=== PATIENT | male | born 1935 | race Caucasian/White ===

== ENCOUNTER 2021-07-01 02:05 | Emergency (ER) | payer MEDICARE ==
[~2021-07-01] VITALS: Ht 175.3 cm; Wt 75.0 kg
[~2021-07-01 02:05] MED LIST: CYCL-1 PO; DICL100G15 TOP
--- NOTE | 2021-07-01 07:47 | NUR ---
RE-EVAL PT AND PT REPORTS HE HAD EPISODE OF DIZZINESS LAST NIGHT AND THAT IS REASON HE TOOK HIS BP. PT UNABLE TO CLARIFY WHEN SXS STARTED OR STOPPED, ACS PROTOCOL PLACED.
[2021-07-01 08:28] LABS: BASOPHILS # (AUTO) 0.1 X10'3 (0-0.2); BASOPHILS % (AUTO) 0.8 % (0-1); EOSINOPHILS # (AUTO) 0.1 X10'3 (0-0.9); HEMATOCRIT 38.3 % (42.0-52.0); HEMOGLOBIN 12.9 g/dl (14.0-17.9); LYMPHOCYTES # (AUTO) 1.8 X10'3 (1.1-4.8); LYMPHOCYTES % (AUTO) 25.6 % (21-51); MEAN CORPUSCULAR HGB CONC 33.5 g/dL (33.0-36.5); MEAN CORPUSCULAR VOLUME 92.4 FL (78-98); MEAN PLATELET VOLUME 9.1 FL (7.4-10.4); MONOCYTES # (AUTO) 0.7 X10'3 (0-0.9); MONOCYTES % (AUTO) 10.4 % (2-12); NEUTROPHILS # (AUTO) 4.4 X10'3 (1.8-7.7); NEUTROPHILS % (AUTO) 61.2 % (42-75); PLATELET COUNT 192 X10'3 (140-440); RED BLOOD COUNT 4.15 X10'6 (4.70-6.10); RED CELL DISTRIBUTION WIDTH 13.6 % (11.5-14.5); WHITE BLOOD COUNT 7.2 X10'3 (4.5-11.0)
--- NOTE | 2021-07-01 08:30 | NUR ---
Pt has no complaints or symptoms at this time.
[2021-07-01 08:51] LABS: ALANINE AMINOTRANSFERASE 29 U/L (12-78); ALBUMIN 3.6 G/DL (3.4-5.0); ALKALINE PHOSPHATASE 90 IU/L (46-116); ASPARTATE AMINO TRANSFERASE 28 U/L (10-37); BILIRUBIN,TOTAL 0.8 MG/DL (0.1-1.0); BLOOD UREA NITROGEN 26 MG/DL (7-18); BUN/CREATININE RATIO 24.5 (5.4-32.0); CALCIUM 9.1 MG/DL (8.5-10.1); CREATININE 1.06 MG/DL (0.60-1.10); GLUCOSE 94 MG/DL (70-104); TOTAL CARBON DIOXIDE 29.6 MMOL/L (24-32); TOTAL PROTEIN 7.2 G/DL (6.4-8.2); eGFR 66 ML/MIN
[2021-07-01 09:17] VITALS: BP 160/73
--- NOTE | 2021-07-01 09:17 | NUR ---
canceled IV. will d/c pt after labs are back.
[2021-07-01 09:22] LABS: ANION GAP 7 (8-16); CHLORIDE 103 MMOL/L (99-107); POTASSIUM 4.4 MMOL/L (3.5-5.1); SODIUM 140 MMOL/L (135-145)
== END 2021-07-01 10:18 | disposition home or self-care (01) ==
LOC: ER 02:06
DX: R00.1 Bradycardia, unspecified (principal); I10 Essential (primary) hypertension; R07.89 Other chest pain; E78.00 Pure hypercholesterolemia, unspecified; F41.9 Anxiety disorder, unspecified; Z87.442 Personal history of urinary calculi; Z72.89 Other problems related to lifestyle; Z98.890 Other specified postprocedural states; Z88.0 Allergy status to penicillin; Z88.8 Allergy status to other drugs, medicaments and biological substances; Z79.899 Other long term (current) drug therapy
CPT/HCPCS: 36415; 71045; 80053; 83880; 84484; 85025; 93005; 99285

== ENCOUNTER 2021-09-04 15:20 | Emergency (ER) | payer MEDICARE ==
[~2021-09-04] VITALS: Ht 175.3 cm; Wt 73.2 kg
[2021-09-04] MEDS ORDERED: BEBTELOVIMAB 175 MG/2 ML VIAL IV ONE (20:30)
[2021-09-04 22:28] VITALS: BP 138/51
== END 2021-09-04 22:29 | disposition home or self-care (01) ==
LOC: ER 15:21
DX: U07.1 COVID-19 (principal); R09.89 Other specified symptoms and signs involving the circulatory and respiratory systems; R53.1 Weakness; R05.9 Cough, unspecified; R50.9 Fever, unspecified; E78.00 Pure hypercholesterolemia, unspecified; I10 Essential (primary) hypertension; F41.9 Anxiety disorder, unspecified; F19.90 Other psychoactive substance use, unspecified, uncomplicated; Z87.442 Personal history of urinary calculi; Z72.89 Other problems related to lifestyle; Z88.0 Allergy status to penicillin; Z88.8 Allergy status to other drugs, medicaments and biological substances; Z79.899 Other long term (current) drug therapy
CPT/HCPCS: 87502; 87503; 87635; 99283; C9803; M0222; Q0222

== ENCOUNTER 2024-06-06 10:06 | Emergency (ER) | payer MEDICARE ==
[~2024-06-06] VITALS: Ht 175.3 cm; Wt 77.4 kg
[2024-06-06 12:17] LABS: BASOPHILS % (AUTO) 0.6 % (0-1); EOSINOPHILS # (AUTO) 0.2 X10'3 (0-0.9); EOSINOPHILS % (AUTO) 2.2 % (0-6); HEMOGLOBIN 11.8 g/dl (14.0-17.9); LYMPHOCYTES # (AUTO) 1.7 X10'3 (1.1-4.8); LYMPHOCYTES % (AUTO) 22.5 % (21-51); MEAN CORPUSCULAR HEMOGLOBIN 31.2 PG (27.0-31.0); MEAN CORPUSCULAR HGB CONC 33.7 g/dL (33.0-36.5); MEAN CORPUSCULAR VOLUME 92.7 FL (78-98); MEAN PLATELET VOLUME 8.3 FL (7.4-10.4); MONOCYTES # (AUTO) 0.8 X10'3 (0-0.9); MONOCYTES % (AUTO) 10.6 % (2-12); NEUTROPHILS # (AUTO) 4.7 X10'3 (1.8-7.7); NEUTROPHILS % (AUTO) 64.1 % (42-75); PLATELET COUNT 193 X10'3 (140-440); RED BLOOD COUNT 3.77 X10'6 (4.70-6.10); RED CELL DISTRIBUTION WIDTH 14.8 % (11.5-14.5); WHITE BLOOD COUNT 7.3 X10'3 (4.5-11.0)
[2024-06-06 12:35] LABS: ALANINE AMINOTRANSFERASE 25 U/L (12-78); ALBUMIN 3.3 G/DL (3.4-5.0); ALBUMIN/GLOBULIN RATIO 0.9 (1.1-1.5); ALKALINE PHOSPHATASE 99 IU/L (46-116); ANION GAP 4 (8-16); ASPARTATE AMINO TRANSFERASE 23 U/L (10-37); BILIRUBIN,TOTAL 0.7 MG/DL (0.1-1.0); BLOOD UREA NITROGEN 27 MG/DL (7-18); BUN/CREATININE RATIO 29.3 (10.0-20.0); CALCIUM 8.7 MG/DL (8.5-10.1); CHLORIDE 106 MMOL/L (99-107); CREATININE 0.92 MG/DL (0.60-1.10); GLUCOSE 89 MG/DL (70-104); POTASSIUM 4.3 MMOL/L (3.5-5.1); SODIUM 141 MMOL/L (135-145); TOTAL CARBON DIOXIDE 30.8 MMOL/L (24-32); TOTAL PROTEIN 6.9 G/DL (6.4-8.2); eCRCL 54 ML/MIN; eGFR 77 ML/MIN
[2024-06-06 15:00] VITALS: BP 140/112; PULSE 53; RESP 16; O2SAT 97
== END 2024-06-06 15:07 | disposition home or self-care (01) ==
LOC: ER 10:06
DX: I10 Essential (primary) hypertension (principal); R00.1 Bradycardia, unspecified; E78.00 Pure hypercholesterolemia, unspecified; Z88.0 Allergy status to penicillin; Z79.1 Long term (current) use of non-steroidal anti-inflammatories (NSAID)
CPT/HCPCS: 36415; 71045; 80053; 84484; 85025; 99284

== ENCOUNTER 2024-08-08 16:30 | Emergency (ER) | payer MEDICARE ==
[~2024-08-08] VITALS: Ht 175.3 cm; Wt 71.9 kg
[2024-08-08 16:40] VITALS: TEMP 98
[2024-08-08] MEDS: ringers solution, lacted 1,000 ML IV ONE (17:54)
[2024-08-08 18:08] LABS: BASOPHILS # (AUTO) 0.1 X10'3 (0-0.2); BASOPHILS % (AUTO) 0.5 % (0-1); EOSINOPHILS % (AUTO) 0.3 % (0-6); HEMATOCRIT 34.5 % (42.0-52.0); HEMOGLOBIN 11.5 g/dl (14.0-17.9); LYMPHOCYTES # (AUTO) 1.3 X10'3 (1.1-4.8); LYMPHOCYTES % (AUTO) 10.3 % (21-51); MEAN CORPUSCULAR HEMOGLOBIN 30.2 PG (27.0-31.0); MEAN CORPUSCULAR HGB CONC 33.3 g/dL (33.0-36.5); MEAN CORPUSCULAR VOLUME 90.8 FL (78-98); MEAN PLATELET VOLUME 8.4 FL (7.4-10.4); MONOCYTES # (AUTO) 0.8 X10'3 (0-0.9); MONOCYTES % (AUTO) 6.6 % (2-12); NEUTROPHILS # (AUTO) 10.2 X10'3 (1.8-7.7); NEUTROPHILS % (AUTO) 82.3 % (42-75); PLATELET COUNT 259 X10'3 (140-440); RED CELL DISTRIBUTION WIDTH 14.6 % (11.5-14.5); WHITE BLOOD COUNT 12.4 X10'3 (4.5-11.0)
[2024-08-08 18:26] LABS: ALANINE AMINOTRANSFERASE 14 U/L (12-78); ALBUMIN 3.5 G/DL (3.4-5.0); ALKALINE PHOSPHATASE 87 IU/L (46-116); ANION GAP 4 (8-16); ASPARTATE AMINO TRANSFERASE 20 U/L (10-37); BILIRUBIN,TOTAL 0.7 MG/DL (0.1-1.0); BLOOD UREA NITROGEN 26 MG/DL (7-18); BUN/CREATININE RATIO 21.5 (10.0-20.0); CALCIUM 8.9 MG/DL (8.5-10.1); CHLORIDE 105 MMOL/L (99-107); CREATININE 1.21 MG/DL (0.60-1.10); GLUCOSE 95 MG/DL (70-104); POTASSIUM 4.3 MMOL/L (3.5-5.1); SODIUM 138 MMOL/L (135-145); TOTAL CARBON DIOXIDE 29.5 MMOL/L (24-32); TOTAL PROTEIN 6.9 G/DL (6.4-8.2); eCRCL 41 ML/MIN; eGFR 56 ML/MIN
[2024-08-08] MEDS ORDERED: DOCU-170 PO (19:25)
--- NOTE | 2024-08-08 19:27 | Physician Documentation ---
History of Present Illness ~ Chief Complaint: Constipation Stated Complaint: CONSTIPATION Time Seen by MD: 18:31 OK to notify your PCP?: Yes Primary Medical Doctor: DR. MORENO ([facility], [place] and [place] Mode of Arrival: POV Exam Limitations: no limitations HPI Chief Complaint: Constipation Caveat: None Independent Historians: History of Present Illness: Patient is a 89-year-old man who comes in complaining he has not had a bowel movement in three days. Patient has not had any nausea vomiting or fever. Patient does complain of some suprapubic cramps. Patient states that he had the urge to go this morning but nothing came out in the he noticed a little bit of blood in that his stool was extremely hard. Patient has occasional problems with constipation but nothing this severe. Patient has not been on any laxatives. Review of systems: All systems were reviewed and are negative except for what is indicated in the history of present illness. Past Medical History: Hypertension Past Surgical History: Noncontributory Social History: , no tobacco use, no alcohol use Medications: Reviewed as documented Nursing Notes Allergies: Reviewed as documented in Nursing Notes Medication Reconciliation Allergies: Coded Allergies: Penicillins (Verified Allergy, Unknown, 08/08/24) >5 years, unknown reaction, unknown treatment PEN-FAST 3 procaine (Verified Allergy, Unknown, 08/08/24) Scheduled Docusate Sodium (Dulcolax Stool Softener), 1 CAP PO Q12H Discontinued Medications Cyclobenzaprine* (Cyclobenzaprine*), 1 TABLET PO Q8H PRN for muscle spasms Discontinued Reason: completed med therapy Diclofenac Sodium (Voltaren), 1 GM TOP Q6H Discontinued Reason: completed med therapy Past Medical History Past Medical History: High Cholesterol, Hypertension, Kidney Stones, Anxiety Past Surgical History: other Alcohol Use: Occasionally Drug Use: none Lives with: Family Lives In: Home Review of Systems All Other Systems at this time: Reviewed and Negative ROS PATIENT DENIES ANY OTHER ACUTE SYMPTOMS OTHER THAN ABOVE. ALL OTHER SYSTEMS ARE NEGATIVE Physical Exam Vital Signs: RN Vital Signs have been reviewed: Yes, Temperature: 98.0, Source: Temporal, Heart Rate: 63, Respiratory Rate: 13, BP: 143/95, Pulse Oximetry: 99, Weight: 71.900 Oxygen Flow Rate: 0 Pulse Oximetry Reflects: adequate oxygenation Physical Exam General Appearance: No distress Neck: supple, normal ROM, trachea midline Pulmonary: No respiratory distress, CTA, BS equal Cardiac: RRR, no murmur, rub or gallop, GI: nondistended, soft, nontender, normal bowel sounds, no guarding, no rebound Rectal: Large amount of firm stool in the rectum. Stool was broken up and manually removed. Stools dark brown. No melena. No blood visualized. Skin: intact, dry, warm, no rashes Neuro: AAOx3, speech is clear, no focal motor weakness Psych: normal affect, good eye contact, no apparent hallucination, normal speech Progress Results/Orders Results/Orders Completed Orders - AGGIE MINOR MD Lidocaine 2% Jelly 11ml Syr (Glydo-Lidoc (08/08/24 19:20) Medications Received in ER Medications (Trade) Dose Ordered Sig/Quynh Route PRN Reason Start Time Stop Time Status Last Admin Dose Admin Lactated Ringer's 1,000 ml @ 1,000 mls/hr ONCE ONCE IV 08/08/24 17:20 08/08/24 18:19 DC 08/08/24 17:54 1,000 MLS/HR Vital Signs 08/08/24 08/08/24 08/08/24 08/08/24 16:40 17:40 18:30 19:30 Temp 98.0 Pulse 73 63 63 Resp 16 13 17 B/P (MAP) 149/68 143/95 (111) 142/56 (84) Pulse Ox 97 99 99 O2 Flow Rate 0 Laboratory Tests Test 08/08/24 17:35 White Blood Count 12.4 H Red Blood Count 3.80 L Hemoglobin 11.5 L Hematocrit 34.5 L Mean Corpuscular Volume 90.8 Mean Corpuscular Hemoglobin 30.2 Mean Corpuscular Hemoglobin Concent 33.3 Red Cell Distribution Width 14.6 H Platelet Count 259 Mean Platelet Volume 8.4 Neutrophils (%) (Auto) 82.3 H Lymphocytes (%) (Auto) 10.3 L Monocytes (%) (Auto) 6.6 Eosinophils (%) (Auto) 0.3 Basophils (%) (Auto) 0.5 Neutrophils # (Auto) 10.2 H Lymphocytes # (Auto) 1.3 Monocytes # (Auto) 0.8 Eosinophils # (Auto) 0.0 Basophils # (Auto) 0.1 CBC Comment Sodium Level 138 Potassium Level 4.3 Chloride Level 105 Carbon Dioxide Level 29.5 Anion Gap 4 L Blood Urea Nitrogen 26 H Creatinine 1.21 H Estimated GFR/1.73 m2 56 BUN/Creatinine Ratio 21.5 H Glucose Level 95 Calcium Level 8.9 Total Bilirubin 0.7 Aspartate Amino Transf (AST/SGOT) 20 Alanine Aminotransferase (ALT/SGPT) 14 Alkaline Phosphatase 87 Total Protein 6.9 Albumin 3.5 Globulin 3.4 Albumin/Globulin Ratio 1.0 L Chemistry Comments Medical Decision Making Findings Differential diagnosis includes but isn't limited to: Fecal impaction, constipation, intra-abdominal infection Emergency department course/medical decision-making: Patient's presentation is consistent with fecal impaction. Patient is manually disimpacted. It isn't clear why blood work was ordered. Patient's abdominal exam is unremarkable. However does have a mildly elevated white blood cell count of 12.4 and some mild chronic kidney disease. Patient is afebrile and hemodynamically stable. Patient is feeling better. There is no indication for further workup or imaging. Patient is stable for discharge. Departure Time of Disposition: 19:24 Disposition: HOME / SELF CARE / HOMELESS Impression: Primary Impression: Fecal impaction Additional Impression: Constipation Qualified Codes: K59.00 - Constipation, unspecified Condition: Improved Discharge Instructions: Fecal Impaction, Constipation, Adult Additional Instructions: USE DULCOLAX PRESCRIBED TO HELP SOFTEN YOUR STOOL. RECOMMEND ALSO DRINKING PRUNE JUICE. FOLLOW UP WITH YOUR PRIMARY CARE DOCTOR. RECOMMEND USING A FLEET'S ENEMA TONIGHT AND TOMORROW WHICH YOU CAN DATA TECHNICAL LEAD AT ANY PHARMACY. Prescriptions Docusate Sodium (Dulcolax Stool Softener) 100 Mg Capsule 1 CAP PO Q12H for 30 Days, #60 CAP 0 Refills Prov: AGGIE MINOR MD 08/08/24 Education Educated: Patient Educated regarding: diagnosis, treatment, need for follow up Signature Scribe Signature: No scribe Attestation: No scribe AGGIE MINOR MD August 08, 2024 19:27
[2024-08-08 19:30] VITALS: BP 142/56; PULSE 63; RESP 17; O2SAT 99
[2024-08-08] MEDS: LidoCAINE 2% Topical Jelly 11mL syringe (UROJET) TOP ONE (19:34)
== END 2024-08-08 19:53 | disposition home or self-care (01) ==
LOC: ER 16:31
DX: K56.41 Fecal impaction (principal); I10 Essential (primary) hypertension; E78.00 Pure hypercholesterolemia, unspecified; Z88.0 Allergy status to penicillin
CPT/HCPCS: 36415; 80053; 85025; 96360; 99284; J7120; 99283

== ENCOUNTER 2025-01-02 09:18 | Emergency (ER) | payer MEDICARE ==
[~2025-01-02] VITALS: Ht 175.3 cm; Wt 71.6 kg
[~2025-01-02 09:18] MED LIST changes: +ASPI-1071 PO; +ATOR40TA72 PO; -CYCL-1 PO; -DICL100G15 TOP; +DOCU-149 PO; +LOSA50TA64 PO; +hyDRALAzine tablet PO
[2025-01-02 09:25] VITALS: TEMP 97
[2025-01-02 10:17] LABS: MEAN PLATELET VOLUME 8.6 FL (7.4-10.4)
[2025-01-02 10:19] LABS: RED CELL DISTRIBUTION WIDTH 15.1 % (11.5-14.5)
[2025-01-02 10:31] LABS: CREATININE 1.03 MG/DL (0.60-1.10); TOTAL CARBON DIOXIDE 32.0 MMOL/L (24-32); eCRCL 49 ML/MIN; eGFR 68 ML/MIN
--- NOTE | 2025-01-02 11:32 | Physician Documentation ---
History of Present Illness ~ Chief Complaint: Dizziness Stated Complaint: HIGH BLOOD PRESSURE Time Seen by MD: 09:58 Primary Medical Doctor: Mode of Arrival: POV HPI 89 year old male reports that his blood pressure read in the 170's systolic today which is unusual for him. He mentions that he is unsure if his hypertension medications were changed recently because his pills went from a green color to a white color. He normally takes losartan. He denies fever, chest pain, shortness of breath, headache. He does report some intermittent dizziness but no difficulty walking or other neurologic deficits. Medication Reconciliation Allergies: Coded Allergies: Penicillins (Verified Allergy, Unknown, 01/02/25) >5 years, unknown reaction, unknown treatment PEN-FAST 3 procaine (Verified Allergy, Unknown, 01/02/25) Scheduled Aspirin (Ecotrin*), 1 TAB PO DAILY Atorvastatin Calcium (Atorvastatin Calcium), 1 TAB PO HS Docusate Sodium (Colace), 1 CAP PO Q12H, (Reported) Losartan Potassium (Losartan Potassium), 1 TAB PO DAILY [hyDRALAzine tablet], 10 MG PO Q8H Past Medical History Past Medical History: High Cholesterol, Hypertension, Kidney Stones, Anxiety Past Surgical History: other Alcohol Use: Occasionally Drug Use: none Lives with: Family Lives In: Home Review of Systems All Other Systems at this time: Reviewed and Negative Physical Exam Vital Signs: RN Vital Signs have been reviewed: Yes, Temperature: 97.0, Source: Temporal, Heart Rate: 48, Respiratory Rate: 12, BP: 150/66, Pulse Oximetry: 95, Weight: 71.600 Physical Exam HEENT: PERRL, moist oral mucosa, EOMI Pulmonary: No respiratory distress CTAB Cardiac: RRR, no murmur, rub or gallop GI: nondistended, soft, nontender, no guarding, no rebound MSK: no deformity Skin: w/d/i, no rash Neuro: alert, nonfocal Psych: normal affect Progress Results/Orders Results/Orders Orders - SHANNAN BENDER MD Urinalysis, Cult If Indicated (01/02/25 09:58) Completed Orders - SHANNAN BENDER MD Cbc/Diff (01/02/25 09:58) CMP (01/02/25 09:58) Vital Signs 01/02/25 01/02/25 01/02/25 01/02/25 09:25 09:38 10:41 10:46 Temp 97.0 Pulse 56 52 48 Resp 16 15 15 12 B/P (MAP) 187/58 168/61 (96) 150/66 (94) Pulse Ox 98 99 95 Laboratory Tests Test 01/02/25 10:10 White Blood Count 5.4 Red Blood Count 3.84 L Hemoglobin 11.7 L Hematocrit 35.2 L Mean Corpuscular Volume 91.7 Mean Corpuscular Hemoglobin 30.6 Mean Corpuscular Hemoglobin Concent 33.4 Red Cell Distribution Width 15.1 H Platelet Count 196 Mean Platelet Volume 8.6 Neutrophils (%) (Auto) 54.5 Lymphocytes (%) (Auto) 30.9 Monocytes (%) (Auto) 11.9 Eosinophils (%) (Auto) 1.7 Basophils (%) (Auto) 1.0 Neutrophils # (Auto) 2.9 Lymphocytes # (Auto) 1.7 Monocytes # (Auto) 0.6 Eosinophils # (Auto) 0.1 Basophils # (Auto) 0.1 CBC Comment Sodium Level 140 Potassium Level 4.1 Chloride Level 104 Carbon Dioxide Level 32.0 Anion Gap 4 L Blood Urea Nitrogen 29 H Creatinine 1.03 Estimated GFR/1.73 m2 68 BUN/Creatinine Ratio 28.2 H Glucose Level 93 Calcium Level 8.8 Total Bilirubin 0.7 Aspartate Amino Transf (AST/SGOT) 43 H Alanine Aminotransferase (ALT/SGPT) 56 Alkaline Phosphatase 111 Total Protein 7.0 Albumin 3.5 Globulin 3.5 Albumin/Globulin Ratio 1.0 L Chemistry Comments Medical Decision Making Additional information obtaine: family Findings 89 year old male with hypertension. Noted bradycardic but otherwise unremarkable exam. Workup benign. I reviewed his bottles of medications and noted that his green medication is the same as his white medication, namely losartan at the same dose. Counseled to not double dose. No red flag signs/symptoms. Return precautions discussed. Differential Dx:Considerations: Include: anemia, dehydration, dysrhythmia, electrolyte imbalance, encephalopathy, hypoglycemia, hypotension, pulmonary embolus, respiratory failure, vertigo central, vertigo peripheral Departure Disposition: HOME / SELF CARE / HOMELESS Impression: Primary Impression: Hypertension Condition: Stable Discharge Instructions: Dizziness Referrals: NO PRIMARY CARE PROVIDER (PCP) Education Educated: Patient, Family Educated regarding: diagnosis, treatment, prognosis, need for follow up Signature Scribe Signature: . Attestation: . SHANNAN BENDER MD Jan 02, 2025 11:32
[2025-01-02 11:36] VITALS: BP 164/64; PULSE 42; RESP 12; O2SAT 98
== END 2025-01-02 11:39 | disposition home or self-care (01) ==
LOC: ER 09:19
DX: I10 Essential (primary) hypertension (principal); E78.00 Pure hypercholesterolemia, unspecified; F41.9 Anxiety disorder, unspecified; Z87.442 Personal history of urinary calculi; Z88.0 Allergy status to penicillin; Z79.899 Other long term (current) drug therapy; Z72.89 Other problems related to lifestyle
CPT/HCPCS: 36415; 80053; 85025; 99283